=== PATIENT | male | born 1960 | race Caucasian/White ===

== ENCOUNTER 2019-10-14 06:51 | Outpatient (CLI) | payer OTHER, SELFPAY ==
[2019-10-14 07:42] LABS: Creatinine Urine 77.8 mg/dL; Total Protein Urine Random 83 mg/dL
[2019-10-14 07:48] LABS: Alanine Aminotransferase 13 U/L (4-50); Albumin Level 4.2 g/dL (3.5-5.1); Blood Urea Nitrogen 42 mg/dL (9-20); Carbon Dioxide 20 mmol/L (22-30); Chloride 108 mmol/L (98-107); Cholesterol 179 mg/dL (0-200); Estimated Glomerular Filt Rate 39; Glucose 104 mg/dL (75-110); HDL Direct 36 mg/dL; Phosphorus 4.1 mg/dL (2.5-4.5); Potassium 5.2 mmol/L (3.4-5.0); Sodium 137 mmol/L (137-145); Triglycerides 165 mg/dL (<150)
[2019-10-14 07:58] LABS: Parathyroid Intact 91.4 pg/mL (7.5-53.5)
[2019-10-14 07:59] LABS: LDL Cholesterol Direct 101 mg/dL
[2019-10-14 08:27] LABS: Vitamin D 25 Hydroxy 22.5 ng/mL
== END 2019-10-14 06:52 | disposition home or self-care (01) ==
PROVIDERS: PCP Family Medicine; Referring Provider Family Medicine; Visit Provider Internal Medicine Nephrology
DX: N18.3 Chronic kidney disease, stage 3 (moderate) (principal)
CPT/HCPCS: 36415; 80061; 80069; 82306; 82570; 83970; 84156; 84460

== ENCOUNTER 2020-04-14 06:53 | Outpatient (CLI) | payer OTHER, SELFPAY ==
[2020-04-14 07:49] LABS: Creatinine Urine 80.4 mg/dL; Total Protein Urine Random 137 mg/dL
[2020-04-14 07:59] LABS: Albumin Level 4.4 g/dL (3.5-5.1); Anion Gap 13.9 mmol/L (7-16); Blood Urea Nitrogen 41 mg/dL (9-20); Calcium 9.5 mg/dL (8.4-10.2); Carbon Dioxide 22 mmol/L (22-30); Chloride 106 mmol/L (98-107); Estimated Glomerular Filt Rate 36; Glucose 113 mg/dL (75-110); Phosphorus 4.6 mg/dL (2.5-4.5); Potassium 4.9 mmol/L (3.4-5.0); Sodium 137 mmol/L (137-145)
[2020-04-14 08:11] LABS: Parathyroid Intact 44.7 pg/mL (7.5-53.5)
[2020-04-14 10:50] LABS: Vitamin D 25 Hydroxy 52.3 ng/mL
== END 2020-04-14 06:54 | disposition home or self-care (01) ==
PROVIDERS: PCP Family Medicine; Visit Provider Internal Medicine Nephrology
DX: N18.3 Chronic kidney disease, stage 3 (moderate) (principal)
CPT/HCPCS: 36415; 80069; 82306; 82570; 83970; 84156

== ENCOUNTER 2020-10-13 06:48 | Outpatient (CLI) | payer OTHER, SELFPAY ==
[2020-10-13 07:57] LABS: Total Protein Urine Random 130 mg/dL; Ur Ttl Prot Creatinine Ratio 1.53 mg/mg (0-0.20)
[2020-10-13 08:05] LABS: Albumin Level 4.2 g/dL (3.5-5.1); Anion Gap 10 mmol/L (8-16); Blood Urea Nitrogen 53 mg/dL (9-20); Calcium 9.4 mg/dL (8.4-10.2); Carbon Dioxide 20 mmol/L (22-30); Chloride 108 mmol/L (98-107); Estimated Glomerular Filt Rate 24; Glucose 117 mg/dL (75-110); Phosphorus 4.1 mg/dL (2.5-4.5); Potassium 4.8 mmol/L (3.4-5.0); Sodium 138 mmol/L (137-145)
== END 2020-10-13 06:49 | disposition home or self-care (01) ==
PROVIDERS: Visit Provider Internal Medicine Nephrology
DX: N18.30 Chronic kidney disease, stage 3 unspecified (principal)
CPT/HCPCS: 36415; 80069; 82570; 84156

== ENCOUNTER 2020-10-23 07:15 | Outpatient (CLI) | payer OTHER, SELFPAY ==
[2020-10-23 08:27] LABS: Add Urine Microscopic? YES; Appearance Urine Clear (Clear); Bilirubin Urine Negative (Negative); Blood Urine Negative (Negative); Color Urine Yellow (Yellow); Glucose Urine UA Negative (Negative); Ketones Urine Negative (Negative); Leukocyte Esterase Ur Negative LEU/UL (Negative); Mucus Urine Rare /lpf; Nitrate Urine Negative (Negative); Protein Urine 2+ mg/dL (Negative); Sodium Urine Random 99 meq/L; Specific Grav Ur 1.016 (1.001-1.035); Urobilinogen Urine Negative mg/dL (<2.0); WBC Urine 0-3 /hpf
[2020-10-23 08:30] LABS: Albumin Level 4.3 g/dL (3.5-5.1); Anion Gap 9 mmol/L (8-16); Blood Urea Nitrogen 45 mg/dL (9-20); Calcium 9.6 mg/dL (8.4-10.2); Carbon Dioxide 22 mmol/L (22-30); Chloride 108 mmol/L (98-107); Estimated Glomerular Filt Rate 29; Glucose 114 mg/dL (75-110); Phosphorus 4.7 mg/dL (2.5-4.5); Potassium 4.9 mmol/L (3.4-5.0); Sodium 139 mmol/L (137-145)
== END 2020-10-23 07:16 | disposition home or self-care (01) ==
PROVIDERS: Visit Provider Internal Medicine Nephrology
DX: N18.32 Chronic kidney disease, stage 3b (principal)
CPT/HCPCS: 36415; 80069; 81001; 82436; 84300; 85999

== ENCOUNTER 2021-01-11 06:58 | Outpatient (CLI) | payer OTHER, SELFPAY ==
[2021-01-11 07:30] LABS: Hematocrit 40.1 % (42.0-52.0); Hemoglobin 13.5 g/dL (14.0-18.0); Mean Corpuscular HGB Conc 33.7 g/dl (32-36); Mean Corpuscular Hemoglobin 29.9 pg (26-34); Mean Corpuscular Volume 88.9 fl (80-100); Mean Platelet Volume 9.5 fl (7.4-10.4); Platelet Count Result 322 k/mm3 (150-375); Red Blood Count 4.51 M/mm3 (4.6-6.20); White Blood Count 11.4 K/mm3 (4.5-10.0)
[2021-01-11 07:43] LABS: Albumin Level 4.4 g/dL (3.5-5.1); Anion Gap 8 mmol/L (8-16); Blood Urea Nitrogen 45 mg/dL (9-20); Calcium 9.7 mg/dL (8.4-10.2); Carbon Dioxide 22 mmol/L (22-30); Chloride 109 mmol/L (98-107); Estimated Glomerular Filt Rate 31; Glucose 117 mg/dL (75-110); Phosphorus 4.5 mg/dL (2.5-4.5); Potassium 4.8 mmol/L (3.4-5.0); Sodium 139 mmol/L (137-145)
[2021-01-11 07:44] LABS: Creatinine Urine 109.6 mg/dL; Total Protein Urine Random 157 mg/dL; Ur Ttl Prot Creatinine Ratio 1.43 mg/mg (0-0.20)
[2021-01-11 08:27] LABS: Vitamin D 25 Hydroxy 50.3 ng/mL
== END 2021-01-11 06:59 | disposition home or self-care (01) ==
PROVIDERS: Visit Provider Internal Medicine Nephrology
DX: N18.32 Chronic kidney disease, stage 3b (principal); E55.9 Vitamin D deficiency, unspecified
CPT/HCPCS: 36415; 80069; 82306; 82570; 83970; 84156; 85027

== ENCOUNTER 2021-08-04 06:52 | Outpatient (CLI) | payer OTHER, SELFPAY ==
[2021-08-04 07:49] LABS: Hematocrit 39.4 % (42.0-52.0); Mean Corpuscular Hemoglobin 30.8 pg (26-34); Mean Corpuscular Volume 93.4 fl (80-100); Mean Platelet Volume 9.5 fl (7.4-10.4); Platelet Count Result 310 k/mm3 (150-375); Red Blood Count 4.22 M/mm3 (4.6-6.20); Red Cell Distribution Width 13.1 % (11.5-14.5); White Blood Count 10.9 K/mm3 (4.5-10.0)
[2021-08-04 08:03] LABS: Albumin Level 4.4 g/dL (3.5-5.1); Anion Gap 9 mmol/L (8-16); Blood Urea Nitrogen 38 mg/dL (9-20); Calcium 9.4 mg/dL (8.4-10.2); Carbon Dioxide 23 mmol/L (22-30); Chloride 104 mmol/L (98-107); Estimated Glomerular Filt Rate 26; Glucose 115 mg/dL (65-110); Phosphorus 4.3 mg/dL (2.5-4.5); Potassium 4.8 mmol/L (3.4-5.0); Sodium 136 mmol/L (137-145)
[2021-08-04 08:06] LABS: Creatinine Urine 67.3 mg/dL; Total Protein Urine Random 124 mg/dL; Ur Ttl Prot Creatinine Ratio 1.84 mg/mg (0-0.20)
[2021-08-04 10:02] LABS: Parathyroid Intact 67.7 pg/mL (7.5-53.5)
== END 2021-08-04 06:53 | disposition home or self-care (01) ==
PROVIDERS: Visit Provider Internal Medicine Nephrology
DX: N18.32 Chronic kidney disease, stage 3b (principal)
CPT/HCPCS: 36415; 80069; 82570; 83970; 84156; 85027

== ENCOUNTER 2021-12-13 06:58 | Outpatient (CLI) | payer OTHER, SELFPAY ==
[2021-12-13 07:45] LABS: Hematocrit 40.4 % (42.0-52.0); Hemoglobin 13.5 g/dL (14.0-18.0); Mean Corpuscular HGB Conc 33.4 g/dl (32-36); Mean Corpuscular Hemoglobin 30.5 pg (26-34); Mean Corpuscular Volume 91.4 fl (80-100); Mean Platelet Volume 9.6 fl (7.4-10.4); Platelet Count Result 332 k/mm3 (150-375); Red Blood Count 4.42 M/mm3 (4.6-6.20); White Blood Count 13.9 K/mm3 (4.5-10.0)
[2021-12-13 08:20] LABS: Albumin Level 4.3 g/dL (3.5-5.1); Anion Gap 8 mmol/L (8-16); Blood Urea Nitrogen 52 mg/dL (9-20); Calcium 8.9 mg/dL (8.4-10.2); Carbon Dioxide 19 mmol/L (22-30); Chloride 110 mmol/L (98-107); Estimated Glomerular Filt Rate 28; Glucose 115 mg/dL (65-110); Phosphorus 4.9 mg/dL (2.5-4.5); Potassium 4.8 mmol/L (3.4-5.0); Sodium 137 mmol/L (137-145)
[2021-12-13 08:36] LABS: Parathyroid Intact 69.9 pg/mL (7.5-53.5)
[2021-12-13 09:38] LABS: Creatinine Urine 95.2 mg/dL
[2021-12-13 11:28] LABS: MALB Creatinine Ratio 1066.5 mg/g (0-30); Microalbumin Urine Random 1015.3 mg/L (0-16.7)
== END 2021-12-13 06:59 | disposition home or self-care (01) ==
PROVIDERS: Visit Provider Internal Medicine Nephrology
DX: N18.32 Chronic kidney disease, stage 3b (principal)
CPT/HCPCS: 36415; 80069; 82043; 83970; 85027

== ENCOUNTER 2022-04-20 07:04 | Outpatient (CLI) | payer OTHER, SELFPAY ==
[2022-04-20 07:55] LABS: Basophils Absolute Auto 0.2 K/mm3 (0.0-0.1); Basophils Percent Auto 1.3 % (0.2-1.2); Eosinophils Absolute Auto 0.4 K/mm3 (0-0.3); Eosinophils Percent Auto 3.4 % (0-4.4); Hematocrit 40.2 % (42.0-52.0); Hemoglobin 13.1 g/dL (14.0-18.0); Immature Granulocyte Absolute 0.04 K/mm3 (0.00-0.031); Immature Granulocyte Percent A 0.3 % (0-0.5); Lymphocytes Absolute Auto 2.13 K/mm3 (0.9-3.2); Lymphocytes Percent Auto 18.6 % (18.3-44.2); Mean Corpuscular HGB Conc 32.6 g/dl (32-36); Mean Corpuscular Volume 92.2 fl (80-100); Mean Platelet Volume 9.6 fl (7.4-10.4); Monocytes Absolute Auto 1.2 K/mm3 (0.1-0.6); Monocytes Percent Auto 10.2 % (2.6-8.5); Neutrophils Absolute Auto 7.6 K/mm3 (1.3-6.7); Neutrophils Percent Auto 66.2 % (45.5-73.1); Platelet Count Result 335 k/mm3 (150-375); Red Blood Count 4.36 M/mm3 (4.6-6.20); White Blood Count 11.5 K/mm3 (4.5-10.0)
[2022-04-20 08:19] LABS: Albumin Level 4.3 g/dL (3.5-5.1); Anion Gap 13 mmol/L (8-16); Blood Urea Nitrogen 46 mg/dL (9-20); Calcium 9.3 mg/dL (8.4-10.2); Carbon Dioxide 19 mmol/L (22-30); Chloride 102 mmol/L (98-107); Estimated Glomerular Filt Rate 28; Glucose 106 mg/dL (65-110); Phosphorus 5.4 mg/dL (2.5-4.5); Potassium 4.5 mmol/L (3.4-5.0); Sodium 134 mmol/L (137-145)
[2022-04-20 08:41] LABS: Creatinine Urine 66.7 mg/dL; Total Protein Urine Random 101 mg/dL; Ur Ttl Prot Creatinine Ratio 1.51 mg/mg (0-0.20)
[2022-04-20 09:39] LABS: Hepatitis B Surface Anti Res Negative
[2022-04-20 10:15] LABS: Parathyroid Intact 84.8 pg/mL (7.5-53.5)
== END 2022-04-20 07:05 | disposition home or self-care (01) ==
PROVIDERS: Visit Provider Internal Medicine Nephrology
DX: N18.4 Chronic kidney disease, stage 4 (severe) (principal)
CPT/HCPCS: 36415; 80069; 82570; 83970; 84156; 85025; 86706

== ENCOUNTER 2022-08-29 07:14 | Outpatient (CLI) | payer OTHER, SELFPAY ==
[2022-08-29 07:47] LABS: Hematocrit 40.8 % (42.0-52.0); Hemoglobin 13.4 g/dL (14.0-18.0); Mean Corpuscular HGB Conc 32.8 g/dl (32-36); Mean Corpuscular Hemoglobin 30.4 pg (26-34); Mean Corpuscular Volume 92.5 fl (80-100); Mean Platelet Volume 9.7 fl (7.4-10.4); Platelet Count Result 338 k/mm3 (150-375); Red Blood Count 4.41 M/mm3 (4.6-6.20); Red Cell Distribution Width 13.4 % (11.5-14.5); White Blood Count 13.5 K/mm3 (4.5-10.0)
[2022-08-29 07:48] LABS: Albumin Level 4.6 g/dL (3.5-5.1); Anion Gap 7 mmol/L (8-16); Blood Urea Nitrogen 47 mg/dL (9-20); Carbon Dioxide 23 mmol/L (22-30); Chloride 106 mmol/L (98-107); Estimated Glomerular Filt Rate 29; Glucose 117 mg/dL (65-110); Phosphorus 4.3 mg/dL (2.5-4.5); Potassium 4.4 mmol/L (3.4-5.0); Sodium 136 mmol/L (137-145)
[2022-08-29 07:48] LABS: Creatinine Urine 103.2 mg/dL
[2022-08-29 07:56] LABS: Total Protein Urine Random 283 mg/dL; Ur Ttl Prot Creatinine Ratio 2.74 mg/mg (0-0.20)
== END 2022-08-29 07:15 | disposition home or self-care (01) ==
LOC: ANHLAB 07:16
PROVIDERS: Visit Provider Internal Medicine Nephrology
DX: N18.4 Chronic kidney disease, stage 4 (severe) (principal)
CPT/HCPCS: 36415; 80069; 82570; 83970; 84156; 85027

== ENCOUNTER 2023-01-02 07:00 | Outpatient (CLI) | payer OTHER, SELFPAY ==
[2023-01-02 07:35] LABS: Hematocrit 40.4 % (42.0-52.0); Hemoglobin 13.2 g/dL (14.0-18.0); Mean Corpuscular HGB Conc 32.7 g/dl (32-36); Mean Corpuscular Hemoglobin 30.2 pg (26-34); Mean Corpuscular Volume 92.4 fl (80-100); Mean Platelet Volume 9.4 fl (7.4-10.4); Platelet Count Result 366 k/mm3 (150-375); Red Blood Count 4.37 M/mm3 (4.6-6.20); Red Cell Distribution Width 13.2 % (11.5-14.5); White Blood Count 10.4 K/mm3 (4.5-10.0)
[2023-01-02 07:44] LABS: Albumin Level 4.5 g/dL (3.5-5.1); Anion Gap 9 mmol/L (8-16); Blood Urea Nitrogen 47 mg/dL (9-20); Calcium 9.3 mg/dL (8.4-10.2); Carbon Dioxide 23 mmol/L (22-30); Chloride 106 mmol/L (98-107); Estimated Glomerular Filt Rate 27; Glucose 113 mg/dL (65-110); Phosphorus 4.3 mg/dL (2.5-4.5); Potassium 4.2 mmol/L (3.4-5.0); Sodium 138 mmol/L (137-145)
[2023-01-02 08:05] LABS: Parathyroid Intact 81.2 pg/mL (7.5-53.5)
[2023-01-02 08:15] LABS: Creatinine Urine 121.7 mg/dL
[2023-01-02 09:18] LABS: Total Protein Urine Random 265 mg/dL; Ur Ttl Prot Creatinine Ratio 2.18 mg/mg (0-0.20)
== END 2023-01-02 07:01 | disposition home or self-care (01) ==
LOC: ANHLAB 07:00
PROVIDERS: Visit Provider Internal Medicine Nephrology
DX: N18.4 Chronic kidney disease, stage 4 (severe) (principal)
CPT/HCPCS: 36415; 80069; 82570; 83970; 84156; 85027

== ENCOUNTER 2023-05-12 10:23 | Outpatient (CLI) | payer OTHER, SELFPAY ==
[2023-05-12 11:16] LABS: Hematocrit 36.9 % (42.0-52.0); Mean Corpuscular HGB Conc 32.5 g/dl (32-36); Mean Corpuscular Hemoglobin 30.2 pg (26-34); Mean Corpuscular Volume 92.7 fl (80-100); Mean Platelet Volume 9.4 fl (7.4-10.4); Platelet Count Result 338 k/mm3 (150-375); Red Blood Count 3.98 M/mm3 (4.6-6.20); Red Cell Distribution Width 13.2 % (11.5-14.5); White Blood Count 11.7 K/mm3 (4.5-10.0)
[2023-05-12 11:32] LABS: Albumin Level 4.2 g/dL (3.5-5.1); Anion Gap 9 mmol/L (8-16); Blood Urea Nitrogen 47 mg/dL (9-20); Calcium 9.2 mg/dL (8.4-10.2); Carbon Dioxide 25 mmol/L (22-30); Chloride 105 mmol/L (98-107); Estimated Glomerular Filt Rate 27; Glucose 99 mg/dL (65-110); Phosphorus 4.1 mg/dL (2.5-4.5); Sodium 139 mmol/L (137-145)
[2023-05-12 11:39] LABS: Creatinine Urine 99.2 mg/dL
[2023-05-12 11:42] LABS: Parathyroid Intact 51.8 pg/mL (7.5-53.5)
[2023-05-12 11:50] LABS: Vitamin D 25 Hydroxy 53.7 ng/mL
[2023-05-12 12:20] LABS: Total Protein Urine Random 251 mg/dL; Ur Ttl Prot Creatinine Ratio 2.53 mg/mg (0-0.20)
== END 2023-05-12 10:24 | disposition home or self-care (01) ==
PROVIDERS: Visit Provider Internal Medicine Nephrology
DX: N18.4 Chronic kidney disease, stage 4 (severe) (principal); E21.1 Secondary hyperparathyroidism, not elsewhere classified
CPT/HCPCS: 36415; 80069; 82306; 82570; 83970; 84156; 85027

== ENCOUNTER 2023-09-18 08:22 | Outpatient (CLI) | payer OTHER, SELFPAY ==
[2023-09-18 08:48] LABS: Creatinine Urine 125.4 mg/dL; Hematocrit 37.6 % (42.0-52.0); Hemoglobin 12.2 g/dL (14.0-18.0); Mean Corpuscular HGB Conc 32.4 g/dl (32-36); Mean Corpuscular Hemoglobin 30.3 pg (26-34); Mean Corpuscular Volume 93.3 fl (80-100); Mean Platelet Volume 9.3 fl (7.4-10.4); Platelet Count Result 332 k/mm3 (150-375); Red Blood Count 4.03 M/mm3 (4.6-6.20); Red Cell Distribution Width 13.1 % (11.5-14.5); Total Protein Urine Random 184 mg/dL; Ur Ttl Prot Creatinine Ratio 1.47 mg/mg (0-0.20); White Blood Count 11.9 K/mm3 (4.5-10.0)
[2023-09-18 09:01] LABS: Albumin Level 4.2 g/dL (3.5-5.1); Anion Gap 10 mmol/L (8-16); Blood Urea Nitrogen 46 mg/dL (9-20); Calcium 9.3 mg/dL (8.4-10.2); Carbon Dioxide 21 mmol/L (22-30); Chloride 104 mmol/L (98-107); Estimated Glomerular Filt Rate 24; Glucose 114 mg/dL (65-110); Phosphorus 4.6 mg/dL (2.5-4.5); Potassium 4.8 mmol/L (3.4-5.0); Sodium 135 mmol/L (137-145)
[2023-09-18 09:19] LABS: Parathyroid Intact 71.3 pg/mL (7.5-53.5)
== END 2023-09-18 08:23 | disposition home or self-care (01) ==
LOC: ANHLAB 08:26
PROVIDERS: Visit Provider Internal Medicine Nephrology
DX: N18.4 Chronic kidney disease, stage 4 (severe) (principal)
CPT/HCPCS: 36415; 80069; 82570; 83970; 84156; 85027

== ENCOUNTER 2024-01-15 06:58 | Outpatient (CLI) | payer OTHER, SELFPAY ==
[2024-01-15 07:43] LABS: Hematocrit 37.8 % (42.0-52.0); Mean Corpuscular HGB Conc 31.7 g/dl (32-36); Mean Corpuscular Hemoglobin 29.9 pg (26-34); Mean Platelet Volume 9.5 fl (7.4-10.4); Platelet Count Result 321 k/mm3 (150-375); Red Blood Count 4.02 M/mm3 (4.6-6.20); Red Cell Distribution Width 12.8 % (11.5-14.5); White Blood Count 11.1 K/mm3 (4.5-10.0)
[2024-01-15 07:57] LABS: Albumin Level 4.3 g/dL (3.5-5.1); Anion Gap 8 mmol/L (4-12); Blood Urea Nitrogen 40 mg/dL (9-20); Calcium 9.5 mg/dL (8.4-10.2); Carbon Dioxide 21 mmol/L (22-30); Chloride 108 mmol/L (98-107); Estimated Glomerular Filt Rate 29; Glucose 118 mg/dL (65-110); Phosphorus 4.8 mg/dL (2.5-4.5); Potassium 4.1 mmol/L (3.4-5.0); Sodium 137 mmol/L (137-145)
[2024-01-15 08:01] LABS: Creatinine Urine 75.1 mg/dL; Total Protein Urine Random 134 mg/dL; Ur Ttl Prot Creatinine Ratio 1.78 mg/mg (0-0.20)
[2024-01-15 08:11] LABS: Parathyroid Intact 59.4 pg/mL (7.5-53.5)
[2024-01-15 08:28] LABS: Vitamin D 25 Hydroxy 62.5 ng/mL
== END 2024-01-15 06:59 | disposition home or self-care (01) ==
LOC: ANHLAB 06:59
PROVIDERS: Visit Provider Internal Medicine Nephrology
DX: E21.1 Secondary hyperparathyroidism, not elsewhere classified (principal); I12.9 Hypertensive chronic kidney disease with stage 1 through stage 4 chronic kidney disease, or unspecified chronic kidney disease; N18.4 Chronic kidney disease, stage 4 (severe)
CPT/HCPCS: 36415; 80069; 82306; 82570; 83970; 84156; 85027

== ENCOUNTER 2024-05-24 06:53 | Outpatient (CLI) | payer OTHER, SELFPAY ==
[2024-05-24 07:50] LABS: Hematocrit 38.1 % (42.0-52.0); Hemoglobin 12.5 g/dL (14.0-18.0); Mean Corpuscular HGB Conc 32.8 g/dl (32-36); Mean Corpuscular Hemoglobin 30.4 pg (26-34); Mean Corpuscular Volume 92.7 fl (80-100); Mean Platelet Volume 9.6 fl (7.4-10.4); Platelet Count Result 338 k/mm3 (150-375); Red Blood Count 4.11 M/mm3 (4.6-6.20); White Blood Count 12.5 K/mm3 (4.5-10.0)
[2024-05-24 08:38] LABS: Albumin Level 4.3 g/dL (3.5-5.1); Anion Gap 13 mmol/L (4-12); Blood Urea Nitrogen 42 mg/dL (9-20); Calcium 9.1 mg/dL (8.4-10.2); Carbon Dioxide 22 mmol/L (22-30); Chloride 102 mmol/L (98-107); Estimated Glomerular Filt Rate 29; Glucose 106 mg/dL (65-110); Phosphorus 4.1 mg/dL (2.5-4.5); Potassium 4.3 mmol/L (3.4-5.0); Sodium 137 mmol/L (137-145)
[2024-05-24 09:17] LABS: Parathyroid Intact 32.8 pg/mL (14.5-75.2)
[2024-05-24 10:17] LABS: Creatinine Urine 66.6 mg/dL; Total Protein Urine Random 124 mg/dL; Ur Ttl Prot Creatinine Ratio 1.86 mg/mg (0-0.20)
== END 2024-05-24 06:54 | disposition home or self-care (01) ==
LOC: ANHLAB 06:56
PROVIDERS: Visit Provider Internal Medicine Nephrology
DX: N18.4 Chronic kidney disease, stage 4 (severe) (principal)
CPT/HCPCS: 36415; 80069; 82570; 83970; 84156; 85027

== ENCOUNTER 2025-02-10 07:03 | Outpatient (CLI) | payer OTHER, SELFPAY ==
--- OUTSIDE RECORDS SUMMARY | 2025-02-10 07:06 | XMS_ITS | Clinical Summary ---
Author Organization [facility] Address [address] [place] [phone] Phone Care Team Providers Care Service Liaison Representative Name Role Phone Berny Hermosillo MD Primary Care Provider Allergies No known active allergies Medications HYDROcodone-arnulfo taminophen (NORCO) 5-325 MG per tablet 06/02/2012 Activ e omega-3 (FISH OIL) 1000 MG capsule 2 bid 06/02/2012 Active Cholecalciferol (VITAMIN D3) 5000 units capsule 1 daily 0 04/18/2018 Active Cholecalciferol (VITAMIN D3) 5000 units capsule 1 capsule (5,000 units) orally daily 0 10/19/2016 Active chlorthalidone (HYGROTON) 25 MG tablet TAKE 1 TABLET BY MOUTH EVERY DAY 30 tablet 11 11/13/2021 Active amLODIPine (NORVASC) 10 MG tablet TAKE 1 TABLET BY MOUTH EVERY DAY 30 tablet 11 11/13/2021 Active metoprolol succinate XL (TOPROL-XL) 100 MG 24 hr tablet TAKE 1 TABLET BY MOUTH EVERY DAY 30 tablet 11 11/13/2021 Active Active Problems Problem Noted Date Diagnosed Date Hyperlipidemia 10/17/2018 Secondary hyperparathyroidism of renal origin Nicotine dependence, unspecified, uncomplicated 10/18/2017 Stage 3b chronic kidney disease 04/03/2012 Hypertensive chronic kidney disease with stage 1 through stage 4 chronic kidney disease, or unspecified chronic kidney disease 04/03/2012 Immunizations Immunization Administration Dates Next Due Influenza TIV (IM) 06/22/2022,06/25/2021, 020 Family History Medical History Relation Comments Kidney disease Father Kidney disease Mother Relation Status Comments Father Mother Social History Tobacco Use Types Packs/Day Years Used Date Smoking Tobacco: Former Smokeless Tobacco: Never Alcohol Use Standard Drinks/Week Comments Not Currently 0 (1 standard drink = 0.6 oz pur e alcohol) Sex and Gender Information Value Date Recorded Sex Assigned at Not on file Legal Sex Male 8:59 AM MST Gender Identity Not on file Sexual Orientation Not on file Last Filed Vital Signs Vital Sign Reading Time Taken Comments Blood Pressure 122/70 08/31/2022 2:08 PM [employer] Pulse 72 08/31/2022 2:08 PM [employer] Temperature 35.2 C (95.4 F) 08/31/2022 2:08 PM [employer] Respiratory Rate 18 11/21/2012 12:01 AM CDT Oxygen Saturation - - Inhaled Oxygen Concentration - - Weight 65.3 kg (144 lb) 08/31/2022 2:08 PM [employer] Height 177.8 cm (5' 10) 08/31/2022 2:08 PM [employer] Body Mass Index 20.66 08/31/2022 2:08 PM [employer] Plan of Treatment Health Maintenance Due Date Last Done Comments Pneumococcal PPSV23/PCV13 65 + Years / Low and Medium Risk (1 of 4 - PCV) 2009 Influenza Vaccine (Season Ended) 2025 06/22/2022, 06/25/2021, 06/25/2020 Insurance Care Teams Service Liaison Representative Relationship Specialty Start Date End Date Berny Hermosillo MD PCP - General Family Medicine 04/15/19
[2025-02-10 07:48] LABS: Hematocrit 36.2 % (42.0-52.0); Hemoglobin 11.5 g/dL (14.0-18.0); Mean Corpuscular HGB Conc 31.8 g/dl (32-36); Mean Corpuscular Hemoglobin 29.7 pg (26-34); Mean Corpuscular Volume 93.5 fl (80-100); Mean Platelet Volume 9.2 fl (7.4-10.4); Platelet Count Result 322 k/mm3 (150-375); Red Blood Count 3.87 M/mm3 (4.6-6.20); Red Cell Distribution Width 13.2 % (11.5-14.5); White Blood Count 11.6 K/mm3 (4.5-10.0)
[2025-02-10 08:00] LABS: Albumin Level 4.2 g/dL (3.5-5.1); Anion Gap 10 mmol/L (4-12); Blood Urea Nitrogen 48 mg/dL (9-20); Calcium 9.4 mg/dL (8.4-10.2); Carbon Dioxide 21 mmol/L (22-30); Chloride 106 mmol/L (98-107); Estimated Glomerular Filt Rate 27; Glucose 110 mg/dL (65-110); Phosphorus 5.1 mg/dL (2.5-4.5); Potassium 4.4 mmol/L (3.4-5.0); Sodium 137 mmol/L (137-145)
[2025-02-10 08:56] LABS: Creatinine Urine 79.8 mg/dL; Total Protein Urine Random 152 mg/dL
[2025-02-10 09:38] LABS: Hepatitis B Surface Anti Res Negative
[2025-02-10 10:58] LABS: Parathyroid Intact 48.7 pg/mL (14.5-75.2)
== END 2025-02-10 07:04 | disposition home or self-care (01) ==
PROVIDERS: Visit Provider Internal Medicine Nephrology
DX: N18.4 Chronic kidney disease, stage 4 (severe) (principal); Z92.29 Personal history of other drug therapy
CPT/HCPCS: 36415; 80069; 82570; 83970; 84156; 85027; 86706

== ENCOUNTER 2025-06-27 07:03 | Outpatient (CLI) | payer OTHER, SELFPAY ==
[2025-06-27 08:00] LABS: Hematocrit 38.1 % (42.0-52.0); Hemoglobin 12.2 g/dL (14.0-18.0); Mean Corpuscular HGB Conc 32.0 g/dl (32-36); Mean Corpuscular Hemoglobin 30.2 pg (26-34); Mean Corpuscular Volume 94.3 fl (80-100); Platelet Count Result 358 k/mm3 (150-375); Red Blood Count 4.04 M/mm3 (4.6-6.20); White Blood Count 11.9 K/mm3 (4.5-10.0)
[2025-06-27 08:21] LABS: Albumin Level 4.1 g/dL (3.5-5.1); Anion Gap 8 mmol/L (4-12); Blood Urea Nitrogen 46 mg/dL (9-20); Calcium 9.3 mg/dL (8.4-10.2); Carbon Dioxide 25 mmol/L (22-30); Chloride 103 mmol/L (98-107); Estimated Glomerular Filt Rate 20; Glucose 109 mg/dL (65-110); Potassium 4.6 mmol/L (3.4-5.0); Sodium 136 mmol/L (137-145)
[2025-06-27 09:36] LABS: Total Protein Urine Random 186 mg/dL; Ur Ttl Prot Creatinine Ratio 1.85 mg/mg (0-0.20)
[2025-06-27 09:42] LABS: Parathyroid Intact 44.3 pg/mL (14.5-75.2)
== END 2025-06-27 07:04 | disposition home or self-care (01) ==
LOC: ANHLAB 07:04
PROVIDERS: Visit Provider Internal Medicine Nephrology
DX: N18.4 Chronic kidney disease, stage 4 (severe) (principal)
CPT/HCPCS: 36415; 80069; 82570; 83970; 84156; 85027